=== PATIENT | female | born 1960 | race Caucasian/White ===

== ENCOUNTER → 2016-06-26 | Outpatient (REF) | payer BC ==
[~2016-06-26] MED LIST: ACET50TAOT PO; ADVI200C5 PO; ALEV220T26 PO; AMPI50CA PO; ATEN50TA2 PO; AUGM875T27 PO; CALC1TAB30 PO; CALC600T10 PO; CALC600T21 PO; CALC600T7 PO; CETI10TA PO; CIPR500T89 PO; CITA20TA4 PO; CLIN1CAP5 PO; COLA100C PO; DIFL150T PO; DIPH50CA PO; DIPH50TA4 PO; DOXY100C PO; DULC10SU2 PR; EFFE75CA75 PO; ESCI20TA PO; FAMO20TA PO; FLAG500T PO; HYDR-2808 PO; IBUP-1114 PO; IBUP800T23 PO; LETR2.5T PO; LEVA500T PO; LEVA750T PO; LEVO137T2 PO; Linezolid PO; METO25TAB PO; MILKSUS PO; NAPR250T2 PO; NAPR500T2 PO; NORC5TAB PO; SYNT88TA2 PO; TAMO20TA4 PO; TRIA1CR TOP; TYLENOL PO; VENL75TA2 PO; VICO5TAB16 PO; VICOTAB4 PO; VITA100066 PO; VITA200016 PO; VITA200038 PO; ZANT1TAB PO; ZYRT10CA PO; ZYVO100T PO; vicodin PO
== END ==
LOC: M LAB REF 16:56
PROVIDERS: ATTEND Internal Medicine Medical Oncology
DX: C50.919 Malignant neoplasm of unspecified site of unspecified female breast (principal)

== ENCOUNTER → 2016-06-29 | Outpatient (CLI) | payer BC ==
--- NOTE | 2016-06-29 14:24 | REP ---
WHOLE BODY BONE SCAN: Following the intravenous administration of 21.5 mCi of technetium 99m MDP, patient's whole body is imaged in the anterior and posterior projections. Additional oblique images of the thoracic and pelvic regions are performed as well as lateral views of the calvarium and knees. Comparison made with prior study of 02/20/2014. There is mild arthritic uptake at the right knee joint. There is no compelling scintigraphic evidence of osseous metastases. No focal abnormality is seen in the axial or appendicular skeleton. Renal and bladder activity are seen. IMPRESSION: No compelling scintigraphic evidence of osseous metastases. Signed by Agustin Soto MD 06/29/2016 04:44 P
== END ==
LOC: M RAD 10:07
PROVIDERS: ATTEND Nurse Practitioner Family
DX: C50.919 Malignant neoplasm of unspecified site of unspecified female breast (principal)

== ENCOUNTER → 2016-09-13 | Outpatient (REF) | payer BC ==
[~2016-09-13] MED LIST changes: -COLA100C PO; +COLA100C3 PO; +NORC1TAB4 PO; -NORC5TAB PO
== END ==
LOC: M LAB REF 12:42
PROVIDERS: ATTEND Family Medicine
DX: M25.561 Pain in right knee (principal); M17.9 Osteoarthritis of knee, unspecified

== ENCOUNTER → 2016-10-27 | Outpatient (REF) | payer BC ==
[~2016-10-27] MED LIST changes: +AMPI500C9 PO; -AMPI50CA PO; -AUGM875T27 PO; +AUGM875T28 PO; -CALC600T10 PO; -CALC600T21 PO; +CALC600T31 PO; +CALC600T60 PO; +CIPR-249 PO; -CIPR500T89 PO; +CLIN150C14 PO; -CLIN1CAP5 PO; -COLA100C3 PO; +COLA100C5 PO; +IBUP1TAB7 PO; -IBUP800T23 PO; -LETR2.5T PO; +LETR2.5T2 PO; +LEVA1TAB2 PO; -LEVA500T PO; -LEVA750T PO; +LEVA750T7 PO; +METO25TA4 PO; -NAPR250T2 PO; +NAPR250T4 PO; -NAPR500T2 PO; +NAPR500T3 PO
== END ==
LOC: M LAB REF 16:51
PROVIDERS: ATTEND Family Medicine
DX: D64.9 Anemia, unspecified (principal)

== ENCOUNTER → 2017-05-11 | Outpatient (REF) | payer BC ==
[2017-05-13 10:08] LABS: CA 27.29 15.8 U/mL (0.0-38.6)
== END ==
LOC: M LAB REF 13:47
DX: C50.919 Malignant neoplasm of unspecified site of unspecified female breast (principal)
CPT/HCPCS: 86300

== ENCOUNTER → 2017-05-15 | Outpatient (CLI) | payer BC, MEDICARE ==
[~2017-05-15] MED LIST changes: -ACET50TAOT PO; -ADVI200C5 PO; -ALEV220T26 PO; -AMPI500C9 PO; -ATEN50TA2 PO; -AUGM875T28 PO; -CALC1TAB30 PO; -CALC600T31 PO; -CALC600T60 PO; -CALC600T7 PO; -CETI10TA PO; -CIPR-249 PO; -CITA20TA4 PO; -CLIN150C14 PO; -COLA100C5 PO; -DIFL150T PO; -DIPH50CA PO; -DIPH50TA4 PO; -DOXY100C PO; -DULC10SU2 PR; -EFFE75CA75 PO; -ESCI20TA PO; -FAMO20TA PO; -FLAG500T PO; -HYDR-2808 PO; -IBUP-1114 PO; -IBUP1TAB7 PO; +ISOVUE-370 76% 100ML VIAL (Q9967) As Ordered; -LETR2.5T2 PO; -LEVA1TAB2 PO; -LEVA750T7 PO; -LEVO137T2 PO; -Linezolid PO; -METO25TA4 PO; -METO25TAB PO; -MILKSUS PO; -NAPR250T4 PO; -NAPR500T3 PO; -NORC1TAB4 PO; -SYNT88TA2 PO; -TAMO20TA4 PO; -TRIA1CR TOP; -TYLENOL PO; -VENL75TA2 PO; -VICO5TAB16 PO; -VICOTAB4 PO; -VITA100066 PO; -VITA200016 PO; -VITA200038 PO; -ZANT1TAB PO; -ZYRT10CA PO; -ZYVO100T PO; -vicodin PO
== END ==
LOC: M RAD 16:01
DX: C50.911 Malignant neoplasm of unspecified site of right female breast (principal)
CPT/HCPCS: Q9967

== ENCOUNTER → 2017-08-13 | Outpatient (REF) | payer BC, MEDICARE, OTHER ==
[2017-08-13 15:40] LABS: BASO # 0.1 10^3/uL (0.0-0.2); EOS # 0.3 10^3/uL (0.0-0.50); EOS % 4.9 % (0.0-3.0); HEMATOCRIT 40.3 % (36.0-47.0); HEMOGLOBIN 12.9 g/dl (12.0-15.5); IMMATURE GRANULOCYTE % 0.3 % (0-3.0); LYMPH # 1.6 10^3/uL (1.5-4.5); LYMPH % 25.6 % (24.0-44.0); MEAN CORPUSCULAR HEMOGLOBIN 26.5 pg (27.0-33.0); MEAN CORPUSCULAR VOLUME 82.8 fl (80.0-96.0); MONO # 0.5 10^3/uL (0.0-0.8); NEUTROPHILS # 3.8 10^3/uL (1.8-7.7); NEUTROPHILS % 60.2 % (36.0-66.0); PLATELET COUNT, AUTOMATED 296 10^3/uL (150-450); RED BLOOD COUNT 4.87 10^6/uL (4.00-5.40); WHITE BLOOD COUNT 6.3 10^3/uL (4.0-10.0)
[2017-08-13 16:08] LABS: RHEUMATOID FACTOR QUANT < 10.0 IU/ML (<15.0)
[2017-08-13 16:08] LABS: C REACTIVE PROTEIN QUANTITATIV 3.35 MG/DL (0.00-0.30)
[2017-08-13 16:34] LABS: ERYTHROCYTE SEDIMENTATION RATE 46 mm/hr (0-30)
== END ==
LOC: M LABDRAW1 14:23
DX: M65.331 Trigger finger, right middle finger (principal)
CPT/HCPCS: 86140

== ENCOUNTER 2017-10-19 08:46 | Day surgery (SDC) | payer BC, MEDICARE ==
[2017-10-19] MEDS: NS 1,000 ML IV (09:43)
[2017-10-19] MEDS ORDERED: PROPOFOL 200 MG/20 ML VIAL As Ordered ×2 (09:59)
[2017-10-19] MEDS ORDERED: LIDOCAINE 2% INJ 100 MG/5 ML SDV (FOR ANES.) As Ordered (09:59)
== END 2017-10-19 11:09 | disposition home or self-care (01) ==
LOC: M OPP 08:46
DX: Z12.11 Encounter for screening for malignant neoplasm of colon (principal); Z80.0 Family history of malignant neoplasm of digestive organs; Z15.09 Genetic susceptibility to other malignant neoplasm; Z84.81 Family history of carrier of genetic disease; D12.2 Benign neoplasm of ascending colon; D12.0 Benign neoplasm of cecum; D12.3 Benign neoplasm of transverse colon; D12.5 Benign neoplasm of sigmoid colon; R00.8 Other abnormalities of heart beat; Z85.3 Personal history of malignant neoplasm of breast; Z92.21 Personal history of antineoplastic chemotherapy; Z92.3 Personal history of irradiation; E03.9 Hypothyroidism, unspecified; J84.112 Idiopathic pulmonary fibrosis; R06.02 Shortness of breath; F41.9 Anxiety disorder, unspecified; F32.9 Major depressive disorder, single episode, unspecified; R06.83 Snoring; Z87.440 Personal history of urinary (tract) infections; Z90.13 Acquired absence of bilateral breasts and nipples; Z88.1 Allergy status to other antibiotic agents; Z88.2 Allergy status to sulfonamides; Z79.899 Other long term (current) drug therapy
CPT/HCPCS: 45385

== ENCOUNTER 2018-01-30 17:53 | Emergency (ER) | payer BC, MEDICARE ==
[2018-01-30] MEDS: ACETAMINOPHEN TAB 650MG DOSE (2X325MG) PO (20:07)
[2018-01-30] MEDS: traMADol 50 MG TAB PO (20:07)
== END 2018-01-30 20:15 | disposition home or self-care (01) ==
LOC: M ED 17:53
DX: S80.211A Abrasion, right knee, initial encounter (principal); S30.1XXA Contusion of abdominal wall, initial encounter; S83.421A Sprain of lateral collateral ligament of right knee, initial encounter; W22.8XXA Striking against or struck by other objects, initial encounter; Y92.018 Other place in single-family (private) house as the place of occurrence of the external cause; E03.9 Hypothyroidism, unspecified; E55.9 Vitamin D deficiency, unspecified; F41.9 Anxiety disorder, unspecified; F33.9 Major depressive disorder, recurrent, unspecified; Z79.899 Other long term (current) drug therapy; Z79.890 Hormone replacement therapy; Z88.1 Allergy status to other antibiotic agents; Z88.2 Allergy status to sulfonamides; Z88.8 Allergy status to other drugs, medicaments and biological substances
CPT/HCPCS: 73552

== ENCOUNTER → 2018-02-25 | Outpatient (CLI) | payer BC, MEDICARE | LOC: M WHC 09:22 | DX: Z51.81 Encounter for therapeutic drug level monitoring (principal); Z79.899 Other long term (current) drug therapy; Z78.0 Asymptomatic menopausal state; M85.851 Other specified disorders of bone density and structure, right thigh; M85.852 Other specified disorders of bone density and structure, left thigh; M85.88 Other specified disorders of bone density and structure, other site | CPT/HCPCS: 77080 ==

== ENCOUNTER 2018-12-25 13:34 | Emergency (ER) | payer BC, MEDICARE ==
[~2018-12-25] VITALS: Ht 167.6 cm; Wt 104.5 kg
[~2018-12-25 13:34] MED LIST changes: +ACET500T15 PO; +ADVI200C5 PO; +ALEV220T26 PO; +AMPI500C9 PO; +ATEN50TA2 PO; +AUGM875T28 PO; +BISO5TAB14 PO; +CALC1TAB30 PO; +CALC600T31 PO; +CALC600T60 PO; +CALC600T7 PO; +CETI10TA PO; +CIPR-249 PO; +CITA20TA6 PO; +CLIN150C14 PO; +COLA100C5 PO; +DIFL150T PO; +DIPH50CA PO; +DIPH50TA4 PO; +DOXY100C PO; +DULC10SU2 PR; +EFFE75CA2 PO; +ESCI20TA PO; +EXEM25TA PO; +FAMO20TA PO; +FLAG500T PO; +HYDR-2808 PO; +IBUP-1114 PO; +IBUP1TAB7 PO; -ISOVUE-370 76% 100ML VIAL (Q9967) As Ordered; +LETR2.5T2 PO; +LEVA1TAB2 PO; +LEVA750T7 PO; +LEVO137T2 PO; +Linezolid PO; +METO1TAB63 PO; +METO25TA4 PO; +MILK120011 PO; +NAPR-885 PO; +NAPR250T4 PO; +NORC1TAB7 PO; +RANI1TAB38 PO; +SYNT88TA2 PO; +TAMO20TA8 PO; +TRIA0.1C60 TOP; +TYLENOL PO; +ULTR50TA8 PO; +VENL75TA2 PO; +VICO5TAB17 PO; +VICOTAB4 PO; +VITA100066 PO; +VITA200016 PO; +VITA200038 PO; +ZANT150T15 PO; +ZYRT10CA PO; +ZYVO1TAB PO; +vicodin PO
--- NOTE | 2018-12-25 15:03 | REP ---
LEFT WRIST, FOUR VIEWS: Four views of the left wrist are performed. There is a slightly comminuted nondisplaced fracture of the distal end of the radius extending into the radiocarpal joint. There is no other evidence of acute fracture or dislocation. Electronically Signed by Agustin Soto MD 12/25/2018 03:37 P
--- NOTE | 2018-12-25 15:07 | REP ---
LEFT FOREARM, TWO VIEWS: Two views of the left forearm are performed. There is a nondisplaced comminuted intra-articular fracture of the distal radius. No other acute fracture or dislocation is seen. Electronically Signed by Agustin Soto MD 12/25/2018 03:37 P
[2018-12-25] MEDS ORDERED: ONDANSETRON 4 MG TAB (S0181) PO ONE (16:30)
[2018-12-25] MEDS ORDERED: ADACEL/BOOSTRIX VACCINE (DIPHTH/PERTUSS/ACELL/TETANUS)0.5ML SYR (90715) IM ONE (16:30)
[2018-12-25] MEDS ORDERED: PERCOCET 5MG/325MG TAB PO ONE (16:30)
--- NOTE | 2018-12-25 17:52 | REP ---
HISTORY: Pain after trauma. COMPARISON: None. There is mild asymmetric intradigital joint space narrowing. There is no prominent marginal osteophytosis. There are no marginal erosions. There is no acute fracture. Limited evaluation of the wrists show a hairline lucency in the distal radius. IMPRESSION: 1. No evidence of a hand fracture. Mild degenerative changes seen involving the hand as described above. 2. Suspect finding in the distal radius consistent with a distal radial fracture, a portion of which is impacted laterally with an additional hairline component more proximally. Wrist series recommended. Electronically Signed by Gregor Cabrales DO 12/25/2018 07:47 P
[2018-12-25] MEDS ORDERED: PERC5TAB12 PO (18:27)
[2018-12-25 18:29] VITALS: BP 144/76
[2018-12-27 12:15] LABS: HEPATITIS B SURFACE ANTIGEN NEGATIVE (NEGATIVE)
[2018-12-27 15:11] LABS: HEP C VIRUS AB INDEX SOURCE PT 0.1 INDEX (0.0-0.8)
== END 2018-12-25 18:38 | disposition home or self-care (01) ==
LOC: M ED 13:34
DX: S80.812A Abrasion, left lower leg, initial encounter (principal); S52.502A Unspecified fracture of the lower end of left radius, initial encounter for closed fracture; W18.39XA Other fall on same level, initial encounter; Y92.481 Parking lot as the place of occurrence of the external cause; Z79.899 Other long term (current) drug therapy; Z88.1 Allergy status to other antibiotic agents; Z88.2 Allergy status to sulfonamides; Z88.8 Allergy status to other drugs, medicaments and biological substances

== ENCOUNTER → 2019-05-30 | Outpatient (CLI) | payer BC, MEDICARE ==
[~2019-05-30] MED LIST changes: +FOLGTAB5 PO; +GASTROGRAFIN SOLUTION 30ML (Q9963) As Ordered ONE; +ISOVUE-370 76% 100ML VIAL (Q9967) As Ordered ONE; +PERC5TAB12 PO
--- NOTE | 2019-05-30 15:19 | REP ---
CT of the chest with IV contrast for restaging of breast carcinoma: Comparison is 05/15/2017. There is a linear fibrotic scar extending from the lateral margin of the right pectoralis muscle into the lateral right chest wall, unchanged in appearance from the prior study. There is no axillary mass or adenopathy on the right. There is no axillary mass or adenopathy on the left. There are bilateral mastectomies as previously. There are no lung nodules or masses. There are no infiltrates. There are no pleural effusions. There is curvilinear scarring anteriorly and posteriorly medially in the right upper lobe and in the right lower lobe and in the left lower lobe. The this is unchanged. There is no hilar, mediastinal or axillary adenopathy. The thoracic aorta is unremarkable. Cardiac size is normal. There is no pericardial effusion. There are no lytic, blastic or destructive skeletal changes. Impression: Stable soft tissue parenchymal scar at the lateral margin of the right pectoralis muscle extending into the lateral right chest wall, unchanged. Bilateral mastectomies, unchanged. There are no lung nodules or masses. There are no infiltrates or pleural effusions. There is no mediastinal, hilar or axillary adenopathy. There are no lytic, blastic or destructive skeletal changes. No significant change from the prior study. Electronically Signed by Agustin Martínez MD 05/30/2019 03:11 P
--- NOTE | 2019-05-30 15:26 | REP ---
CT of the abdomen and pelvis with IV and oral contrast for restaging of breast carcinoma. Comparison is 12/30/2015. The studies performed with dual phase imaging. The hepatic parenchyma is homogeneous on both phases. No hepatic metastases are identified. The gallbladder is surgically absent. The pancreas, spleen, adrenals and kidneys are unremarkable. The abdominal aorta is unremarkable. There is no periaortic adenopathy or mass. The bowel and mesentery are unremarkable. There is no ascites. Pelvis: The appendix is unremarkable. There is a hysterectomy. On the comparison study there was an abscess in the pouch of Tirso. This has resolved. The vaginal cuff and adnexa are unremarkable. The bladder is unremarkable. There are no lytic, blastic or destructive skeletal changes. Impression: There is no evidence of adenopathy or metastatic disease. The gallbladder is surgically absent. There is a hysterectomy. The previous abscess in the pouch of Tirso has resolved. Electronically Signed by Agustin Martínez MD 05/30/2019 03:18 P
== END ==
LOC: M RAD 12:01
PROVIDERS: ATTEND Internal Medicine Medical Oncology
DX: C50.911 Malignant neoplasm of unspecified site of right female breast (principal); Z90.49 Acquired absence of other specified parts of digestive tract
CPT/HCPCS: 71260; 74177; Q9963; Q9967

== ENCOUNTER → 2019-06-02 | Outpatient (REF) | payer BC, MEDICARE ==
[~2019-06-02] MED LIST changes: -GASTROGRAFIN SOLUTION 30ML (Q9963) As Ordered ONE; -ISOVUE-370 76% 100ML VIAL (Q9967) As Ordered ONE
[2019-06-02 13:32] LABS: ALBUMIN 3.4 GM/DL (3.2-5.2); BILIRUBIN,TOTAL 0.3 MG/DL (0.2-1.0); CALCIUM LEVEL 8.9 MG/DL (8.5-10.1); CHOLESTEROL RISK RATIO 4.947 (<5); CREATININE FOR GFR 1.03 MG/DL (0.55-1.30); GLOMERULAR FILTRATION RATE 58.6 (>51); POTASSIUM SERUM 3.9 MEQ/L (3.5-5.1); THYROID STIMULATING HORMONE 2.47 uIU/ML (0.358-3.740)
== END ==
LOC: M LABDRAWC 11:10
PROVIDERS: ATTEND Family Medicine
DX: E03.9 Hypothyroidism, unspecified (principal); R00.2 Palpitations; Z85.3 Personal history of malignant neoplasm of breast

== ENCOUNTER → 2019-06-06 | Outpatient (CLI) | payer BC, MEDICARE | LOC: M WHC 08:03 | PROVIDERS: ATTEND Internal Medicine Medical Oncology | DX: C50.911 Malignant neoplasm of unspecified site of right female breast (principal) ==

== ENCOUNTER → 2020-02-26 | Outpatient (CLI) | payer BC, MEDICARE ==
[~2020-02-26] MED LIST changes: +BENA25CA4 PO; +CALC-212 PO; -CALC600T7 PO; +DIAL800T PO; +FAMO40TA3 PO; -HYDR-2808 PO; +HYDR-4429 PO; +SYNT100T PO; +VENL100T PO
== END ==
LOC: M LABSMTC 11:51
PROVIDERS: ATTEND Anesthesiology
DX: Z01.812 Encounter for preprocedural laboratory examination (principal); Z20.828 Contact with and (suspected) exposure to other viral communicable diseases
CPT/HCPCS: C9803; U0003

== ENCOUNTER 2020-03-02 06:57 | Day surgery (SDC) | payer BC, MEDICARE ==
[~2020-03-02] VITALS: Ht 167.6 cm; Wt 107.0 kg
[~2020-03-02 06:57] MED LIST changes: +BACITRACIN PWD 50,000 UNITS VIAL As Ordered ONE; +BUPIVACAINE LIPOSOME/PF 1.3% 20ML VIAL (13.3MG/ML)(EXPAREL)(C9290 PER1MG) As Ordered ONE; +CLINDAMYCIN 600 MG in IV 1 EA IV ONE; +EPINEPHrine INJ 1 MG/ML 1ML AMP As Ordered ONE; +LIDOCAINE 1% MDV 20ML VIAL As Ordered ONE; +LR 1,000 ML IV ONE; -SYNT100T PO; -VENL100T PO
[2020-03-02] MEDS ORDERED: SYNT100T PO (07:10)
[2020-03-02] MEDS ORDERED: VENL100T PO (07:10)
[2020-03-02] MEDS: HEPARIN SOD (PORCINE) 5000UNITS/ML 1ML VIAL/SYRINGE SQ ONE ×2 (08:01→09:00)
[2020-03-02] MEDS ORDERED: propofoL 200 MG/20 ML VIAL As Ordered ONE (08:23)
[2020-03-02] MEDS ORDERED: dexameTHASONE 4 MG/ML 1ML VIAL (J1100 PER 1MG) As Ordered ONE (08:23)
[2020-03-02] MEDS ORDERED: LIDOCAINE 2% 100MG/5ML SDV (FOR ANES.) As Ordered ONE (08:23)
[2020-03-02] MEDS ORDERED: fentaNYL 250 MCG/5 ML INJECTION (J3010) As Ordered ONE (08:23)
[2020-03-02] MEDS ORDERED: ROCURONIUM BROMIDE 50 MG/5 ML VIAL As Ordered ONE ×3 (08:23→11:12)
[2020-03-02] MEDS ORDERED: MIDAZOLAM INJ 2MG/2ML VIAL (J2250 PER 1MG) As Ordered ONE (08:24)
[2020-03-02] MEDS ORDERED: LACRILUBE (AKWA TEARS) OPHTH OINT 3.5 GM As Ordered ONE (08:52)
[2020-03-02] MEDS ORDERED: ePHEDrine SULFATE 25 MG/5 ML(5MG/ML) SYRINGE As Ordered ONE (09:19)
[2020-03-02] MEDS ORDERED: PHENYLephrine HCL 500 MCG/5 ML (100MCG/ML) SYRINGE (J2370) As Ordered ONE (09:31)
[2020-03-02] MEDS ORDERED: SUGAMMADEX SODIUM 500 MG/5 ML VIAL (BRIDION) As Ordered ONE (09:47)
[2020-03-02] MEDS ORDERED: METOCLOPRAMIDE INJ 10MG/2ML VIAL (J2765 PER 1) As Ordered ONE (09:47)
[2020-03-02] MEDS ORDERED: ACETAMINOPHEN 1000MG 100ML IV BTL (OFIRMEV) (J0131 PER 10MG) As Ordered ONE ×2 (09:47→09:51)
[2020-03-02] MEDS ORDERED: HYDROmorphone HCL 2 MG/ML 1ML VIAL (J1170) As Ordered ONE (11:14)
--- NOTE | 2020-03-02 13:07 | POST-OPPD ---
Postoperative Procedure Note Date Of Procedure: Mar 02, 2020 PREOPERATIVE DIAGNOSIS: Symptomatic scar, tissue redundancy s/p failed bilateral breast reconstruction after mastectomies POSTOPERATIVE DIAGNOSIS: same FINDINGS: Contracted scar on the right and Left, Excess tissue right and left breast to lateral chest wall PROCEDURE: Revision bilateral breast reconstruction with local tissue rearrangement, chest wall contouring, mastectomy scars revision and left pectoralis muscle reattachment. SURGEON: Dr Adam ANESTHESIA: General SPECIMENS: Right and left breast tissue ESTIMATED BLOOD LOSS: 100 cc REPLACED: none DRAINS: 10 mm CHANO x 2 COMPLICATIONS: none POSTOPERATIVE CONDITION: stable [id number] DEYANIRA ADAM DO Mar 02, 2020 13:07
[2020-03-02] MEDS ORDERED: ONDANSETRON 4MG/2ML VIAL IV PRN ×2 (13:45→14:00)
[2020-03-02] MEDS ORDERED: LR 1,000 ML IV SCH (13:45)
[2020-03-02] MEDS ORDERED: METOCLOPRAMIDE INJ 10MG/2ML VIAL (J2765 PER 1) IV PRN (13:45)
[2020-03-02] MEDS ORDERED: fentaNYL 100 MCG/2 ML INJECTION (J3010) IV PRN (13:45)
[2020-03-02] MEDS ORDERED: PERCOCET 5MG/325MG TAB PO PRN (13:45)
[2020-03-02] MEDS: LR 1,000 ML IV SCH (13:54)
[2020-03-02] MEDS ORDERED: ACETAMINOPHEN TAB 650MG DOSE (2X325MG) PO PRN (14:00)
[2020-03-02] MEDS ORDERED: KETOROLAC TROMETHAMINE 10 MG TAB PO PRN (14:00)
[2020-03-02 15:30] VITALS: BP 149/92
[2020-03-02] MEDS: PERCOCET 5MG/325MG TAB PO PRN (18:22)
[2020-03-02] MEDS ORDERED: bisoproloL fumarate 5 MG TAB PO SCH (21:00)
[2020-03-02] MEDS ORDERED: CETIRIZINE (ZyrTEC) 10 MG TAB PO SCH (21:00)
[2020-03-02] MEDS ORDERED: FAMOTIDINE 20 MG TAB PO SCH (21:00)
[2020-03-02 21:24] VITALS: BP 150/91
[2020-03-02] MEDS: OMEPRAZOLE 20 MG CAP PO SCH (21:24)
[2020-03-02] MEDS: VENLAFAXINE 25 MG TAB PO SCH (21:24)
[2020-03-02 21:38] VITALS: BP 151/90
[2020-03-02] MEDS ORDERED: diphenhydrAMINE 50MG CAP PO SCH ×2 (22:00)
[2020-03-03] MEDS: LR 1,000 ML IV SCH (03:14)
[2020-03-03] MEDS ORDERED: LEVOTHYROXINE 100MCG TABLET (0.1MG) PO SCH (06:00)
[2020-03-03 06:31] VITALS: BP 137/86
--- NOTE | 2020-03-03 07:09 | RO ---
DATE OF OPERATION: 03/02/2020 PREOPERATIVE DIAGNOSIS: Symptomatic scar, tissue redundancy status post failed breast reconstruction bilaterally after mastectomies. POSTOPERATIVE DIAGNOSIS: Symptomatic scar, tissue redundancy status post failed breast reconstruction bilaterally after mastectomies. PROCEDURES: Revision, bilateral breast reconstruction with local tissue rearrangement, chest wall contouring, mastectomy scar revision, and left pectoralis muscle reattachment. ATTENDING SURGEON: Dr. Banks ANESTHESIA: General. SPECIMEN SENT: Right and left breast tissue. BLOOD LOSS: 100 mL. REPLACEMENT: None. DRAINS: Two 10 mm Leo-Arciniega drains used. COMPLICATIONS: None. PROCEDURE DESCRIPTION: This is a 59-year-old female who has a history of right breast cancer. She had right modified radical mastectomy and left mastectomy for symmetry. Patient had also chemotherapy and radiation. Radiation was on the right side. She had complicated course with her outbound sales consultant placement; therefore, both of them had to be removed. She developed painful contraction on the right side status post radiation and a previous implant being there. Also she has significant redundancy on her lateral chest wall, more on the left than on the right. Patient would like to have some symmetry and reduce her redundant tissue as well as release her scar contracture, which is causing significant discomfort on the right side. Risks, benefits, and alternatives were discussed with the patient in detail, and she is ready to proceed. The day of surgery she was marked in the up right position. She was brought into the operating room and placed in supine position. Preoperative antibiotics were given. Sequential stockings placed on the lower calves. General anesthesia was induced. Heparin was given, 5000 units subcutaneous. We started our procedure on the right side, which was more affected side, site of the radiation. The incision was carried out through the old resultant scar, and then under direct vision with the lighted retractor, we elevated the flap superiorly to the subclavicular area, releasing the contracture. Pectoralis muscle on the right was intact and in a good position, so the adhesions were released using electrocautery and PEAK cautery inferiorly and superiorly. We created a new pocket. There was a significant amount of fatty tissue that was present. We created the subcuticular flap that would be reshaping our pectoralis. Also additional dissection was done laterally. The with elevated lateral publications distribution clerk flap from the lateral chest, which was de-epithelialized and then turned medially, covering the inferior portion of the breast. It was reattached to the superior portion of the fat flap that was created from the previous scar, so it was completely released and restructured. The tissues were rearranged. The lateral chest was closed with interrupted 0 Vicryl sutures, and then we conformed our padding in the breast mount reconstructed part with 0 Vicryl sutures, and the skin was closed with interrupted 3-0 Monocryl in a running 3-0 V-lock suture. Then tumescent solution was infiltrated in the lateral chest wall, and laser liposuction was done on the lateral chest wall for the improvement of the contour as well as regular liposuction of about 100 mL was evacuated just to smooth out the lateral chest contour. Also, Exparel was infiltrated into the pectoralis muscle, totally 6 mL, and the medial portion of the scar was given Exparel as well. Lidocaine area of the tumescent and the Exparel were not mixed at any time. We turned our attention to the left side, which had less damage to the surrounding tissue, since it was not radiated. The incision was carried out through the old mastectomy incision, and then the flaps were raised inferiorly and superiorly. Pectoralis muscle on this side was completed from inferior boarder. Area was identified, and repaired using interrupted 0 Vicryl sutures. Pectoralis muscle was reattached to costal fascia. Then we reassessed. This breast has a lot more fatty tissue padding and is smoother, so the flap was realigned, and then we also raised the lateral chest wall flap, which was de- epithelialized, and then turned anteriorly to cover the inferior portion of the breast and given good padding. The excess tissue was tailored, de- epithelialized, and used as an inferior sling so it was symmetrical to the right side. The incision was lowered to inframammary fold (IMF), so both incisions now along the IMF. We started closing with interrupted 3-0 Monocryl sutures, and excess tissue was measured, de-epithelialized, and used as a new padding for creating the breast mound. The lateral chest wall was then infiltrated with tumescent solution, and for excess tissue we used laser liposuction and regular liposuction to contour the lateral chest, totalling 200 mL of fat was removed. Then 10 mm Leo-Arciniega drain was placed at the lateral portion of the horizontal incision. We continued our closure with 3-0 Monocryl and a 3-0 V-Loc suture. Good symmetry was achieved. Compressive dressing with foam was placed on both axilla, Prineo dressing on the inferior incision, and bulky dressing and a surgical bra. Patient was extubated in the operating room without any difficulty and was transferred to the recovery room in stable condition. ÁNGEL
[2020-03-03] MEDS: OMEPRAZOLE 20 MG CAP PO SCH (09:00)
[2020-03-03] MEDS: PERCOCET 5MG/325MG TAB PO PRN (09:05)
[2020-03-03] MEDS: VENLAFAXINE 25 MG TAB PO SCH (09:05)
--- NOTE | 2020-03-03 09:49 | IPNPDOC ---
Subjective General Date Seen: Mar 03, 2020 Subject Chief Complaint/History The patient is a 59-year-old female admitted with a reason for visit of Failed Bilateral Reconstruction,Scar Contracture... Patient s/p bilateral mastectomy scar revisions POD 1. Doing well. Pain controlled, tolerating diet. Current Medications Current Medications Current Medications Medications (Trade) Dose Ordered Sig/Maryana Route PRN Reason Start Time Stop Time Status Last Admin Dose Admin Acetaminophen (Tylenol Tab) 650 mg Q6H PRN PO MILD PAIN (PS 1-4) 03/02/20 14:00 Bisoprolol Fumarate (Zebeta) 5 mg QHS PO 03/02/20 21:00 03/02/20 21:24 Cetirizine HCl (ZyrTEC) 10 mg QHS PO 03/02/20 21:00 03/02/20 21:24 Diphenhydramine HCl (Benadryl) 50 mg QHS PO 03/02/20 22:00 03/02/20 22:54 Diphenhydramine HCl (Benadryl) 50 mg QHSP PO 03/02/20 22:00 03/02/20 21:58 DC Famotidine (Pepcid) 40 mg DAILY@2100 PO 03/02/20 21:00 03/02/20 22:54 Fentanyl Citrate (Sublimaze) 25 mcg Q5MP PRN IV PAIN LEVEL 5-10 03/02/20 13:45 03/02/20 14:45 DC Ketorolac Tromethamine (ToRADol) 10 mg Q6HP PRN PO MODERATE PAIN (PS 5-7) 03/02/20 14:00 03/07/20 13:59 03/02/20 21:35 Lactated Ringer's 1,000 ml @ 75 mls/hr [id number] IV 03/02/20 13:54 Lactated Ringer's 1,000 ml @ 100 mls/hr Q10H IV 03/02/20 13:45 03/02/20 14:45 DC Levothyroxine Sodium (Synthroid) 100 mcg DAILY@06 PO 03/03/20 06:00 03/03/20 06:31 Metoclopramide HCl (REGLAN INJection) 10 mg Q6HP PRN IV NAUSEA OR VOMITING 03/02/20 13:45 03/02/20 14:45 DC Miscellaneous (Unresolved Patient Own Med Order) SEE LABEL COMMENTS DAILY XX 03/02/20 09:00 03/03/20 04:07 DC Omeprazole (PriLOSEC) 20 mg BID PO 03/02/20 21:00 03/02/20 21:24 Ondansetron HCl (ZOFRAN INJection) 4 mg Q4H PRN IV NAUSEA OR VOMITING 03/02/20 14:00 Ondansetron HCl (ZOFRAN INJection) 4 mg Q4HP PRN IV NAUSEA OR VOMITING 03/02/20 13:45 03/02/20 14:45 DC Oxycodone/ Acetaminophen (Percocet 5mg/ 325mg Tablet) 1 tab ASDIRECTED PRN PO PAIN LEVEL 1-4 03/02/20 13:45 03/02/20 14:45 DC Oxycodone/ Acetaminophen (Percocet 5mg/ 325mg Tablet) 1 tab Q4HP PRN PO MODERATE PAIN (PS 5-7) 03/02/20 14:00 03/03/20 09:05 Patient Own Medication (Patient'S Own Med) Exemestane 25 mg TAB... DAILY PO 03/02/20 09:00 03/03/20 09:06 Venlafaxine HCl (Effexor) 100 mg BID PO 03/02/20 21:00 03/03/20 09:05 Allergies Coded Allergies: nitrofurantoin (Verified Allergy, Intermediate, hives, 02/24/20) sulfamethoxazole (Verified Allergy, Intermediate, hives and itching, 02/24/20) trimethoprim (Verified Allergy, Intermediate, hives and itching, 02/24/20) TAPE (Verified Allergy, Mild, RASH IF LEFT ON FOR TOO LONG ON TORSO, 02/24/20) Sulfa (Sulfonamide Antibiotics) (Verified Allergy, Unknown, 02/24/20) cephalexin (Verified Allergy, Unknown, 02/24/20) Objective Physical Examination Examination GENERAL APPEARANCE:Patient seen, laying in bed, awake, alert, and oriented. Comfortable, in no acute distress. SKIN: Warm and moist. BREAST: Right and left soft, non-tender incisions intact. CHANO drains: 50/80cc/24 hr. NAC: Viable, warm, symmetrical, mild post-op ecchymosis, no expanding hematoma. HEENT: Normocephalic, atraumatic. Richards palpebral conjunctiva, anicteric scle meng. Lips and mucosa appear moist. NECK: Supple, no thyromegaly. No obvious jugular venous distention. LUNGS: Clear to auscultation bilaterally. No wheezing appreciated. HEART: No chest wall abnormalities. Regular rate and rhythm with no murmurs appreciated. ABDOMEN: Abdomen is soft, non-tender, non-distended. EXTREMITIES: No edema identified. No calf tenderness. Vital Signs Vital Signs Date Time Temp Pulse Resp B/P (MAP) Pulse Ox O2 Delivery O2 Flow Rate FiO2 03/03/20 09:05 18 03/03/20 06:31 97.6 88 137/86 (103) 91 Room Air 03/02/20 15:04 3 I&Os I&O- Last 24 Hours up to 6 AM 03/03/20 06:00 Intake Total 2305 ml Output Total 980 ml Balance 1325 ml Impression S/p bilateral mastectomy scar revision, breast reconstruction revision. Doing well. Stable for discharge D/c home. F/u plastic surgery. Plan / VTE VTE Prophylaxis Ordered?: Yes DEYANIRA ADAM DO Mar 03, 2020 09:49
[2020-03-03] MEDS ORDERED: PERCOCET PO (09:56)
[2020-03-15] MEDS ORDERED: OXYC1TAB23 (14:45)
== END 2020-03-03 10:45 | disposition home or self-care (01) ==
LOC: M SDC 06:57 → M MS5PR 15:15 → M SDC 03-03 10:45
PROVIDERS: ATTEND Plastic Surgery Surgery of the Hand
DX: L90.5 Scar conditions and fibrosis of skin (principal); Z90.13 Acquired absence of bilateral breasts and nipples; Z85.3 Personal history of malignant neoplasm of breast; I35.1 Nonrheumatic aortic (valve) insufficiency; K21.9 Gastro-esophageal reflux disease without esophagitis; F34.1 Dysthymic disorder; G47.00 Insomnia, unspecified; R94.31 Abnormal electrocardiogram [ECG] [EKG]; E03.9 Hypothyroidism, unspecified; L50.1 Idiopathic urticaria; R32 Unspecified urinary incontinence; Z88.2 Allergy status to sulfonamides; Z88.1 Allergy status to other antibiotic agents; Z88.8 Allergy status to other drugs, medicaments and biological substances; Z79.811 Long term (current) use of aromatase inhibitors
CPT/HCPCS: 19380; 88300; 88302; C9290; J0131; J0171; J1100; J1170; J1644; J2250; J2370; J2765; J3010

== ENCOUNTER 2020-03-12 15:22 | Emergency (ER) | payer BC, MEDICARE ==
[~2020-03-12] VITALS: Ht 167.6 cm; Wt 108.3 kg
[~2020-03-12 15:22] MED LIST changes: -BACITRACIN PWD 50,000 UNITS VIAL As Ordered ONE; -BUPIVACAINE LIPOSOME/PF 1.3% 20ML VIAL (13.3MG/ML)(EXPAREL)(C9290 PER1MG) As Ordered ONE; -CLINDAMYCIN 600 MG in IV 1 EA IV ONE; -EPINEPHrine INJ 1 MG/ML 1ML AMP As Ordered ONE; -LIDOCAINE 1% MDV 20ML VIAL As Ordered ONE; -LR 1,000 ML IV ONE; +PERCOCET PO; +SYNT100T PO; +VENL100T PO
[2020-03-12] MEDS ORDERED: EUTH100T PO (15:56)
[2020-03-12] MEDS ORDERED: FAMO1TAB25 PO (15:56)
[2020-03-12] MEDS ORDERED: NAPR250T4 PO (16:05)
[2020-03-12 17:54] LABS: BASO # 0.1 10^3/uL (0.0-0.2); BASO % 0.6 % (0.0-1.0); EOS # 0.6 10^3/uL (0.0-0.5); EOS % 5.9 % (0.0-3.0); HEMATOCRIT 37.1 % (36.0-47.0); HEMOGLOBIN 11.8 g/dl (12.0-15.5); LYMPH # 2.1 10^3/uL (1.5-5.0); LYMPH % 21.6 % (24.0-44.0); MEAN CORPUSCULAR HEMOGLOBIN 28.2 pg (27.0-33.0); MEAN CORPUSCULAR HGB CONC 31.8 g/dl (32.0-36.5); MEAN CORPUSCULAR VOLUME 88.5 fl (80.0-96.0); MONO # 1.1 10^3/uL (0.0-0.8); MONO % 10.6 % (0.0-5.0); NEUTROPHILS % 60.8 % (36.0-66.0); PLATELET COUNT, AUTOMATED 381 10^3/uL (150-450); RED BLOOD COUNT 4.19 10^6/uL (4.00-5.40); WHITE BLOOD COUNT 9.9 10^3/uL (4.0-10.0)
[2020-03-12 18:12] LABS: ERYTHROCYTE SEDIMENTATION RATE 117 mm/hr (0-30)
[2020-03-12 18:17] LABS: ALBUMIN 3.2 GM/DL (3.2-5.2); BILIRUBIN,DIRECT 0.1 MG/DL (0.0-0.2); BILIRUBIN,TOTAL 0.4 MG/DL (0.2-1.0); C REACTIVE PROTEIN QUANTITATIV 16.4 MG/DL (0.00-0.30); TOTAL PROTEIN 7.3 GM/DL (6.4-8.2)
[2020-03-12] MEDS ORDERED: CIPR-249 PO (18:28)
--- NOTE | 2020-03-12 18:43 | CR.PDOC ---
Plastic Surgery Consultation Date of Consultation 03/12/20 History and Physical CONSULT REPORT FOR: Emergency room REASON FOR CONSULTATION: Right breast redness HISTORY OF PRESENT ILLNESS: 59 year old female s/p bilateral breasts deformity s/p bilateral mastectomy and failed uniform room attendant reconstruction in 2013. Original diagnosis Right breast cancer, Left prophylactic. Patient underwent chemotherapy (port on the left, removed), and radiation. Post radiation skin changes Right side. Patient underwent bilateral oncoplastic reconstruction on 03/02/20. Had uneventful recovery course. Today c/o increased redness and pain right breast. No drainage, fever, odor. PAST MEDICAL HISTORY: 1. Right breast CA. PAST SURGICAL HISTORY: INCLUDES: 1. Bilateral mastectomy. Bilateral implant reconstruction, removal of implants. PREVIOUS ANESTHESIA REACTIONS: denies ALLERGIES: Please see below. FAMILY HISTORY: non contributory. HOME MEDICATIONS: Please see below. REVIEW OF SYSTEMS: GENERAL: Denies chills, reports weight gain,. HEENT: Denies blurred vision and double vision. Denies ear symptoms. Denies hoarseness. NECK: Denies any neck pain]. CARDIOVASCULAR: Denies chest pain and palpitations. MUSCULOSKELETAL: Denies arthralgias, back pain and thrombophlebitis. SKIN: Right breast redness NEUROLOGIC: Denies headache, stroke and transient ischemic attack. PSYCHIATRIC: Denies anxiety and depression. ENDOCRINE: Denies thyroid disease. HEMATOLOGY/ONCOLOGY: Denies bleeding or clotting disorder. HEART: Denies any chest pains, palpitations, paroxysmal dyspnea, orthopnea. PULMONARY: Denies chronic cough, dyspnea and wheezing. GASTROINTESTINAL: Denies rectal bleeding, family history of colon cancer, constipation, diarrhea, dysphagia, heartburn and jaundice. GENITOURINARY: Denies dysuria, frequency, hematuria and nocturia. ENDOCRINE: Denies polydipsia, polyphagia, polyuria, heat or cold intolerance. INFECTIOUS: Denies any recent upper respiratory tract infection, UTI, need for use of antibiotics. NUTRITION: Reports good appetite. PHYSICAL EXAMINATION: VITALS SIGNS: Please see below. GENERAL APPEARANCE:Patient seen, laying in bed, awake, alert, and oriented. Comfortable, in no acute distress. SKIN: Warm and moist. BREAST: Right breast with redness mid breast. Incision intact, no drainage. Left breast soft, incision intact, no tenderness. LUNGS: Clear to auscultation bilaterally. No wheezing appreciated. HEART: No chest wall abnormalities. Regular rate and rhythm with no murmurs appreciated. LABORATORY DATA: Please see below. IMAGING STUDIES: Right breast US: loculated collection. IMPRESSION: Right breast with collection. Normal WBC Plan for IR drainage of collection. Cipro Rx Minimize upper extremity motion, no heavy lifting F/up with plastic surgery sunday. Finding and plan discussed with patient, she agrees. PLANS: . Vital Signs Vital Signs Date Time Temp Pulse Resp B/P (MAP) Pulse Ox O2 Delivery O2 Flow Rate FiO2 03/12/20 16:01 Automatic Cuff (NIBP) Left Arm 03/12/20 15:22 98.4 105 16 97 Room Air Laboratory Data Labs 24H Laboratory Tests 2 03/12/20 17:38: Immature Granulocyte % (Auto) 0.5, Neutrophils (%) (Auto) 60.8, Lymphocytes (%) (Auto) 21.6L, Monocytes (%) (Auto) 10.6H, Eosinophils (%) (Auto) 5.9H, Basophils (%) (Auto) 0.6, Neutrophils # (Auto) 6.0, Lymphocytes # (Auto) 2.1, Monocytes # (Auto) 1.1H, Eosinophils # (Auto) 0.6H, Basophils # (Auto) 0.1, Nucleated Red Blood Cells % (auto) 0.0, Erythrocyte Sedimentation Rate 117H, Lactic Acid Level 0.9, Total Bilirubin 0.4, Direct Bilirubin 0.1, Aspartate Amino Transf (AST/SGOT) 38H, Alanine Aminotransferase (ALT/SGPT) 65, Alkaline Phosphatase 144H, C-Reactive Protein, Quantitative 16.40H, Total Protein 7.3, Albumin 3.2, Albumin/Globulin Ratio 0.8L 03/12/20 17:44: POC Glucose (Misc Panel) 109H, POC Sodium (Misc Panel) 137, POC Potassium (Misc Panel) 3.5, POC Chloride (Misc Panel) 99, POC Total CO2 (Misc Panel) 30.0H, POC Blood Urea Nitrogen (Misc Panel 13, POC Ionized Calcium (Misc Panel) 4.6, POC Creatinine (Misc Panel) 1.0, POC Hematocrit (Misc Panel) 35.0L CBC/BMP Laboratory Tests 03/12/20 17:38 Microbiology Microbiology 03/12/20 Blood Culture, Received Pending 03/12/20 Blood Culture, Received Pending Home Medications Scheduled Bisoprolol Fumarate (Bisoprolol Fumarate) 5 Mg Tab, 5 MG PO DAILY, (Reported) Calcium Carbonate/Vitamin D3 (Calcium 500-Vit D3 200 Caplet) 1 Tab Tab, 1 TAB PO BID, (Reported) Cetirizine HCl (Cetirizine HCl) 10 Mg Tab, 10 MG PO QHS, (Reported) Ciprofloxacin HCl (Cipro) 500 Mg Tablet, 500 MG PO BID Diphenhydramine HCl (Benadryl) 25 Mg Capsule, 50 MG PO QPM, (Reported) Exemestane (Exemestane) 25 Mg Tab, 25 MG PO DAILY Famotidine (Famotidine) 10 Mg Tablet, 1 TAB PO BID, (Reported) Levothyroxine Sodium (Euthyrox) 100 Mcg Tablet, 1 TAB PO DAILY, (Reported) Venlafaxine HCl (Venlafaxine HCl) 100 Mg Tablet, 100 MG PO BID, (Reported) Scheduled PRN Naproxen (Naproxen) 250 Mg Tablet, 250 MG PO for PAIN, (Reported) Oxycodone/Acetaminophen (Oxycodone-Acetaminophen 5-325) 1 Each Tablet, 1 TAB PO Q6HP PRN for MODERATE PAIN (PS 5-7) Allergies Coded Allergies: nitrofurantoin (Verified Allergy, Intermediate, hives, 02/24/20) sulfamethoxazole (Verified Allergy, Intermediate, hives and itching, 02/24/20) trimethoprim (Verified Allergy, Intermediate, hives and itching, 02/24/20) TAPE (Verified Allergy, Mild, RASH IF LEFT ON FOR TOO LONG ON TORSO, 02/24/20) Sulfa (Sulfonamide Antibiotics) (Verified Allergy, Unknown, 02/24/20) cephalexin (Verified Allergy, Unknown, 02/24/20) DEYANIRA ADAM DO Mar 12, 2020 18:43
[2020-03-12] MEDS ORDERED: CIPROFLOXACIN 500MG TABLET PO ONE (19:00)
[2020-03-12 19:06] VITALS: BP 144/67
--- NOTE | 2020-03-12 19:31 | REPVR ---
PROCEDURE INFORMATION: Exam: US Right Breast Limited Exam date and time: 03/12/2020 6:08 PM Age: 59 years old Clinical indication: Breast pain; Right; Prior surgery; Surgery date: <1 month; Surgery type: RT breast reconstruction; Additional info: Post operative-indurated/painful ? infection TECHNIQUE: Imaging protocol: Limited ultrasound of Right breast with image documentation, including axilla when performed. Exam focused on the search and evaluation for mass. COMPARISON: US BREAST U/S UNILATERAL LIMITED RIGHT 02/07/2016 1:31 PM FINDINGS: Breast: According to history the patient has had a previous right mastectomy 2013. Patient had surgical breast reconstruction surgery 03/02/2020. Deep to the area of scar right breast is a 5.1 cm x 3 cm x 9.3 cm complex fluid collection. There is no evidence of internal vascular flow. The area of fluid collection has numerous septations and surrounding edema. The skin in the region of the scar demonstrates a red appearance. This may represent a complex infected fluid collection/abscess. This could also represent a complex serous collection of fluid. IMPRESSION: 1. 5.1 cm x 3 cm x 9.3 cm complex fluid collection deep to the scar and area erythema. This could represent a serous fluid collection or an infected fluid collection. There are numerous septations and this is multiloculated. 2. The study is performed as a postoperative study of the chest wall for reconstruction surgery. Electronically signed by: bOi Florian On 03/12/2020 19:31:41 PM
[2020-03-15] MEDS ORDERED: OXYC1TAB23 (14:45)
== END 2020-03-12 19:07 | disposition home or self-care (01) ==
LOC: M ED 15:22
DX: T81.40XA Infection following a procedure, unspecified, initial encounter (principal); C50.911 Malignant neoplasm of unspecified site of right female breast; Z90.13 Acquired absence of bilateral breasts and nipples; Z92.21 Personal history of antineoplastic chemotherapy; Z92.3 Personal history of irradiation; E03.9 Hypothyroidism, unspecified; F33.9 Major depressive disorder, recurrent, unspecified; F41.9 Anxiety disorder, unspecified; Z88.1 Allergy status to other antibiotic agents; Z88.2 Allergy status to sulfonamides; Z88.8 Allergy status to other drugs, medicaments and biological substances; Z79.899 Other long term (current) drug therapy

== ENCOUNTER → 2020-03-15 | Outpatient (CLI) | payer BC, MEDICARE ==
[~2020-03-15] MED LIST changes: +EUTH100T PO; +FAMO1TAB25 PO; +OXYC1TAB23
== END ==
LOC: M LABSMTC 13:27
PROVIDERS: ATTEND Anesthesiology
DX: Z01.812 Encounter for preprocedural laboratory examination (principal); Z20.828 Contact with and (suspected) exposure to other viral communicable diseases

== ENCOUNTER 2020-03-16 12:42 | Day surgery (SDC) | payer BC, MEDICARE ==
[~2020-03-16] VITALS: Ht 167.6 cm; Wt 108.0 kg
[~2020-03-16 12:42] MED LIST changes: +HEPARIN SOD (PORCINE) 5000UNITS/ML 1ML VIAL/SYRINGE SQ ONE; +LR 1,000 ML IV ONE
[2020-03-16] MEDS ORDERED: CIPROFLOXACIN 400 MG in IV 1 EA IV ONE (14:00)
[2020-03-16] MEDS ORDERED: ONDANSETRON 4MG/2ML VIAL As Ordered ONE (15:26)
[2020-03-16] MEDS ORDERED: MIDAZOLAM INJ 2MG/2ML VIAL (J2250 PER 1MG) As Ordered ONE (15:26)
[2020-03-16] MEDS ORDERED: propofoL 200 MG/20 ML VIAL As Ordered ONE (15:26)
[2020-03-16] MEDS ORDERED: fentaNYL 100 MCG/2 ML INJECTION (J3010) As Ordered ONE ×2 (15:26→17:59)
[2020-03-16] MEDS ORDERED: dexameTHASONE 4 MG/ML 1ML VIAL (J1100 PER 1MG) As Ordered ONE (15:26)
[2020-03-16] MEDS ORDERED: LIDOCAINE 2% 100MG/5ML SDV (FOR ANES.) As Ordered ONE (15:26)
[2020-03-16] MEDS ORDERED: BACITRACIN PWD 50,000 UNITS VIAL As Ordered ONE (16:01)
[2020-03-16] MEDS ORDERED: SCOPOLAMINE 1MG TRANSDERMAL PATCH TOP ONE (16:15)
[2020-03-16] MEDS ORDERED: ACETAMINOPHEN 1000MG 100ML IV BTL (OFIRMEV) (J0131 PER 10MG) As Ordered ONE (17:03)
--- NOTE | 2020-03-16 17:53 | POST-OPPD ---
Postoperative Procedure Note Date Of Procedure: Mar 16, 2020 PREOPERATIVE DIAGNOSIS: Right breast collection POSTOPERATIVE DIAGNOSIS: same FINDINGS: seroma right breast PROCEDURE: Drainage of Right breast collection. SURGEON: Dr Adam CERTIFIED CODING SPECIALIST: Dr Ashraf ANESTHESIA: General SPECIMENS: Seroma culture ESTIMATED BLOOD LOSS: 10 cc REPLACED: none DRAINS: 15 Fr Round drain COMPLICATIONS: none POSTOPERATIVE CONDITION: stable [id number] DEYANIRA ADAM DO Mar 16, 2020 17:53
[2020-03-16] MEDS ORDERED: CIPR-249 PO (17:56)
[2020-03-16] MEDS ORDERED: ONDANSETRON 4MG/2ML VIAL IV PRN (18:30)
[2020-03-16] MEDS ORDERED: fentaNYL 100 MCG/2 ML INJECTION (J3010) IV PRN (18:30)
[2020-03-16 19:10] VITALS: BP 125/74
--- NOTE | 2020-03-17 12:18 | RO ---
DATE OF OPERATION: 03/16/2020 PREOPERATIVE DIAGNOSIS: Right breast collection. POSTOPERATIVE DIAGNOSIS: Right breast collection. FINDINGS: Seroma right breast. PROCEDURE: Drainage of right breast collection. ATTENDING SURGEON: Lacey Banks DO, FACOS DIRECTOR RIVER RESTORATION: Dr. Ashraf ANESTHESIA: General. SPECIMENS: Seroma, culture sent. BLOOD LOSS: 10 mL, no replacement. DRAINS: 15-Palauan round drain. COMPLICATIONS: None. INDICATIONS: This is a 59-year-old female who was operated upon on the 02 of March who had oncoplastic reconstruction bilateral breasts. The patient developed swelling and increased tenderness on the right breast. She was seen in the emergency room over the weekend with increased collection of fluid which was confirmed by ultrasound. The patient is scheduled today for drainage. Risks, benefits and alternatives discussed with the patient in detail and she is ready to proceed. DESCRIPTION OF PROCEDURE: Dr. Ashraf did an ultrasound preoperatively and confirmed the collection and the area where we would be entering the breast tissue. Patient was prepped and draped in usual sterile fashion. Sequentials were placed on lower calves and incision was carried out along the old incision, this was opened. The cavity was entered under direct vision and seroma was found with dark but clear fluid, no odor and no turbulence although fluid was taken for cultures, it was evacuated. The cavity was irrigated with 1 liter of Bacitracin irrigation solution. Drain was placed through separate stab incision, 15-Palauan round. The wound was closed in layers with #0 Vicryl sutures and 3-0 Monocryl sutures subcu and also vertical mattress sutures to the skin. Xeroform and bulky dressing were applied. The patient was extubated in the operating room without any difficulties and transferred to the recovery room in stable condition. Amount of seroma evacuated 100 mL. MTDD
== END 2020-03-16 19:10 | disposition home or self-care (01) ==
LOC: M SDC 12:42
PROVIDERS: ATTEND Plastic Surgery Surgery of the Hand
DX: L76.34 Postprocedural seroma of skin and subcutaneous tissue following other procedure (principal); I47.1 Supraventricular tachycardia; E03.9 Hypothyroidism, unspecified; F34.1 Dysthymic disorder; L50.1 Idiopathic urticaria; D64.9 Anemia, unspecified; G47.00 Insomnia, unspecified; K21.9 Gastro-esophageal reflux disease without esophagitis; M17.11 Unilateral primary osteoarthritis, right knee; N95.1 Menopausal and female climacteric states; F41.9 Anxiety disorder, unspecified; R06.83 Snoring; R32 Unspecified urinary incontinence; F32.9 Major depressive disorder, single episode, unspecified; Z79.899 Other long term (current) drug therapy; Z86.010 Personal history of colon polyps; Z88.1 Allergy status to other antibiotic agents; Z88.2 Allergy status to sulfonamides; Z88.8 Allergy status to other drugs, medicaments and biological substances; Z91.048 Other nonmedicinal substance allergy status; Z92.21 Personal history of antineoplastic chemotherapy; Z92.3 Personal history of irradiation; Z85.3 Personal history of malignant neoplasm of breast; Z90.710 Acquired absence of both cervix and uterus
CPT/HCPCS: 10140; 87070; 87075; 87077; 87186; 87205; J0131; J0744; J1100; J1644; J2250; J2405; J3010

== ENCOUNTER 2020-03-30 11:02 | Day surgery (SDC) | payer BC, MEDICARE ==
[~2020-03-30] VITALS: Ht 167.6 cm; Wt 105.4 kg
[~2020-03-30 11:02] MED LIST changes: -HEPARIN SOD (PORCINE) 5000UNITS/ML 1ML VIAL/SYRINGE SQ ONE; -LR 1,000 ML IV ONE
[2020-03-30] MEDS ORDERED: EUTH112T PO (11:26)
[2020-03-30] MEDS ORDERED: VITMTA PO (11:26)
[2020-03-30] MEDS ORDERED: CIPR500T3 PO (11:26)
[2020-03-30] MEDS ORDERED: MIDAZOLAM INJ 2MG/2ML VIAL (J2250 PER 1MG) As Ordered ONE (13:24)
[2020-03-30] MEDS ORDERED: dexameTHASONE 4 MG/ML 1ML VIAL (J1100 PER 1MG) As Ordered ONE (13:24)
[2020-03-30] MEDS ORDERED: fentaNYL 100 MCG/2 ML INJECTION (J3010) As Ordered ONE ×2 (13:24→16:06)
[2020-03-30] MEDS ORDERED: LIDOCAINE 2% 100MG/5ML SDV (FOR ANES.) As Ordered ONE (13:24)
[2020-03-30] MEDS ORDERED: ONDANSETRON 4MG/2ML VIAL As Ordered ONE (13:24)
[2020-03-30] MEDS ORDERED: propofoL 200 MG/20 ML VIAL As Ordered ONE (13:24)
[2020-03-30 14:11] LABS: BASO # 0.1 10^3/uL (0.0-0.2); BASO % 0.6 % (0.0-1.0); EOS # 0.5 10^3/uL (0.0-0.5); EOS % 6.1 % (0.0-3.0); HEMATOCRIT 36.5 % (36.0-47.0); HEMOGLOBIN 11.4 g/dl (12.0-15.5); LYMPH # 2.3 10^3/uL (1.5-5.0); LYMPH % 27.2 % (24.0-44.0); MEAN CORPUSCULAR HEMOGLOBIN 27.4 pg (27.0-33.0); MEAN CORPUSCULAR HGB CONC 31.2 g/dl (32.0-36.5); MEAN CORPUSCULAR VOLUME 87.7 fl (80.0-96.0); MONO # 0.9 10^3/uL (0.0-0.8); MONO % 10.6 % (0.0-5.0); NEUTROPHILS # 4.7 10^3/uL (1.5-8.5); NEUTROPHILS % 54.9 % (36.0-66.0); PLATELET COUNT, AUTOMATED 365 10^3/uL (150-450); RED BLOOD COUNT 4.16 10^6/uL (4.00-5.40); WHITE BLOOD COUNT 8.6 10^3/uL (4.0-10.0)
[2020-03-30] MEDS ORDERED: BUPIVACAINE LIPOSOME/PF 1.3% 20ML VIAL (13.3MG/ML)(EXPAREL)(C9290 PER1MG) As Ordered ONE (14:17)
[2020-03-30] MEDS ORDERED: BACITRACIN PWD 50,000 UNITS VIAL As Ordered ONE (14:18)
--- NOTE | 2020-03-30 14:27 | CR.PDOC ---
Plastic Surgery Consultation Date of Consultation 03/30/20 History and Physical CONSULT REPORT FOR: emergency room REASON FOR CONSULTATION: left breast seroma HISTORY OF PRESENT ILLNESS: 59 y/o female s/p bilateral revision breast reconstruction on 03/02/20. Patient developed seroma on the right breast which was drained on 03/15/20. Yesterday patient was seen in my office c/o increased fullness of the left breast. She was scheduled to have seroma drainage for 03/31/20. This morning she woke up with significant leakage from the left breast serosanguinous drainage. She was instructed to go to ER for further evaluation. PAST MEDICAL HISTORY: 1. right breast cancer. PAST SURGICAL HISTORY: INCLUDES: 1. bilateral mastectomies Bilateral breast reconstruction with subsequent implant removal Bilateral breast soft tissue reconstruction, chest wall conturing. PREVIOUS ANESTHESIA REACTIONS: none ALLERGIES: Please see below. FAMILY HISTORY: non contributory. HOME MEDICATIONS: Please see below. REVIEW OF SYSTEMS: GENERAL: Denies chills, reports weight gain,. HEENT: Denies blurred vision and double vision. Denies ear symptoms. Denies hoarseness. NECK: Denies any neck pain]. CARDIOVASCULAR: Denies chest pain and palpitations. MUSCULOSKELETAL: Denies arthralgias, back pain and thrombophlebitis. SKIN: Denies rash. NEUROLOGIC: Denies headache, stroke and transient ischemic attack. PSYCHIATRIC: Denies anxiety and depression. ENDOCRINE: Denies thyroid disease. HEMATOLOGY/ONCOLOGY: Denies bleeding or clotting disorder. HEART: Denies any chest pains, palpitations, paroxysmal dyspnea, orthopnea. PULMONARY: Denies chronic cough, dyspnea and wheezing. GASTROINTESTINAL: Denies rectal bleeding, family history of colon cancer, c onstipation, diarrhea, dysphagia, heartburn and jaundice. GENITOURINARY: Denies dysuria, frequency, hematuria and nocturia. ENDOCRINE: Denies polydipsia, polyphagia, polyuria, heat or cold intolerance. INFECTIOUS: Denies any recent upper respiratory tract infection, UTI, need for use of antibiotics. NUTRITION: Reports good appetite. PHYSICAL EXAMINATION: VITALS SIGNS: Please see below. GENERAL APPEARANCE:Patient seen, laying in bed, awake, alert, and oriented. Comfortable, in no acute distress. SKIN: Warm and moist. BREAST: Right and left soft, non-tender incisions intact. CHANO drains: Right 20 cc/24 hr. Left breast incision intact. serosanguinous drainage seeping thru. No redness. LUNGS: Clear to auscultation bilaterally. No wheezing appreciated. HEART: No chest wall abnormalities. Regular rate and rhythm with no murmurs appreciated. LABORATORY DATA: Please see below. IMPRESSION: Left breast seroma. PLANS: WBC 8.6 Plan for OR today for drainage of seroma, wash out left breast. Risks, benefits and alternatives discussed with patient in details. She is ready to proceed. Vital Signs Vital Signs Date Time Temp Pulse Resp B/P (MAP) Pulse Ox O2 Delivery O2 Flow Rate FiO2 03/30/20 13:29 97.9 91 16 126/64 (84) 96 Room Air Laboratory Data Labs 24H Laboratory Tests 2 03/30/20 11:50: Coronavirus (COVID-19)(PCR) NEGATIVE, Influenza Type A (RT-PCR) NEGATIVE, Influenza Type B (RT-PCR) NEGATIVE, Respiratory Syncytial Virus (PCR) NEGATIVE 03/30/20 13:54: Immature Granulocyte % (Auto) 0.6, Neutrophils (%) (Auto) 54.9, Lymphocytes (%) (Auto) 27.2, Monocytes (%) (Auto) 10.6H, Eosinophils (%) (Auto) 6.1H, Basophils (%) (Auto) 0.6, Neutrophils # (Auto) 4.7, Lymphocytes # (Auto) 2.3, Monocytes # (Auto) 0.9H, Eosinophils # (Auto) 0.5, Basophils # (Auto) 0.1, Nucleated Red Blood Cells % (auto) 0.0 CBC/BMP Laboratory Tests 03/30/20 13:54 Home Medications Scheduled Bisoprolol Fumarate (Bisoprolol Fumarate) 5 Mg Tab, 5 MG PO DAILY, (Reported) Calcium Carbonate/Vitamin D3 (Calcium 500-Vit D3 200 Caplet) 1 Tab Tab, 1 TAB PO BID, (Reported) Cetirizine HCl (Cetirizine HCl) 10 Mg Tab, 10 MG PO QHS, (Reported) Ciprofloxacin HCl (Ciprofloxacin HCl) 500 Mg Tablet, 1 TAB PO BID, (Reported) Diphenhydramine HCl (Benadryl) 25 Mg Capsule, 50 MG PO QPM, (Reported) Exemestane (Exemestane) 25 Mg Tab, 25 MG PO DAILY Famotidine (Famotidine) 10 Mg Tablet, 1 TAB PO BID, (Reported) Levothyroxine Sodium (Euthyrox) 112 Mcg Tablet, 1 TAB PO DAILY, (Reported) Multivitamins (Thera M Plus Tablet) 1 Each Tablet, 1 TAB PO QAM, (Reported) Venlafaxine HCl (Venlafaxine HCl) 100 Mg Tablet, 100 MG PO BID, (Reported) Miscellaneous Medications Oxycodone HCl/Acetaminophen (Oxycodone-Acetaminophen 5-325) 1 Each Tablet, (Reported) Allergies Coded Allergies: nitrofurantoin (Verified Allergy, Intermediate, hives, 03/15/20) sulfamethoxazole (Verified Allergy, Intermediate, hives and itching, 03/15/20) trimethoprim (Verified Allergy, Intermediate, hives and itching, 03/15/20) TAPE (Verified Allergy, Mild, RASH IF LEFT ON FOR TOO LONG ON TORSO, 03/15/20) Sulfa (Sulfonamide Antibiotics) (Verified Allergy, Unknown, 03/15/20) cephalexin (Verified Allergy, Unknown, 03/15/20) DEYANIRA ADAM DO Mar 30, 2020 14:27
[2020-03-30] MEDS ORDERED: CIPROFLOXACIN/D5W 400 MG/200 ML BAG (J0744) As Ordered ONE (14:38)
[2020-03-30] MEDS ORDERED: DESFLURANE 240 ML INHALANT As Ordered ONE (14:44)
[2020-03-30 14:45] LABS: ALBUMIN 2.6 GM/DL (3.2-5.2); ALT/SGPT 55 U/L (12-78); BILIRUBIN,TOTAL 0.4 MG/DL (0.2-1.0); BLOOD UREA NITROGEN 12 MG/DL (7-18); CALCIUM LEVEL 8.9 MG/DL (8.5-10.1); CARBON DIOXIDE LEVEL 30 MEQ/L (21-32); CHLORIDE LEVEL 103 MEQ/L (98-107); GLOMERULAR FILTRATION RATE > 60.0 (>51); GLUCOSE, FASTING 106 MG/DL (70-100); POTASSIUM SERUM 5.2 MEQ/L (3.5-5.1); SODIUM LEVEL 138 MEQ/L (136-145); TOTAL PROTEIN 6.7 GM/DL (6.4-8.2)
[2020-03-30] MEDS ORDERED: ACETAMINOPHEN 1000MG 100ML IV BTL (OFIRMEV) (J0131 PER 10MG) As Ordered ONE (15:24)
--- NOTE | 2020-03-30 16:06 | POST-OPPD ---
Postoperative Procedure Note Date Of Procedure: Mar 30, 2020 PREOPERATIVE DIAGNOSIS: Left breast collection POSTOPERATIVE DIAGNOSIS: same FINDINGS: left breast seroma PROCEDURE: Evacuation collection and wash out left breast SURGEON: Dr Adam ANESTHESIA: General SPECIMENS: Left breast fluid culture ESTIMATED BLOOD LOSS: 20cc REPLACED: none DRAINS: 15Fr Round COMPLICATIONS: none POSTOPERATIVE CONDITION: stable Dict: [id number] DEYANIRA ADAM DO Mar 30, 2020 16:06
[2020-03-30] MEDS: fentaNYL 100 MCG/2 ML INJECTION (J3010) IV PRN ×2 (16:10→16:16)
[2020-03-30] MEDS ORDERED: METOCLOPRAMIDE INJ 10MG/2ML VIAL (J2765 PER 1) IV PRN (16:30)
[2020-03-30] MEDS ORDERED: LR 1,000 ML IV SCH (16:30)
[2020-03-30] MEDS ORDERED: oxyCODONE 5MG TAB PO PRN (16:30)
[2020-03-30] MEDS ORDERED: ONDANSETRON 4MG/2ML VIAL IV PRN (16:30)
[2020-03-30 17:05] VITALS: BP 111/62
--- NOTE | 2020-03-31 08:50 | RO ---
OPERATIVE NOTE DATE OF OPERATION: 03/30/2020 PREOPERATIVE DIAGNOSIS: Left breast collection. POSTOPERATIVE DIAGNOSIS: Left breast collection. FINDINGS: Left breast seroma. PROCEDURE: Evacuation collection and washout left breast. ATTENDING SURGEON: Dr. Banks. ANESTHESIA: General. SPECIMEN: Left breast fluid culture. BLOOD LOSS: 20 mL. No replacement. DRAINS: 15-Burundian round drain. COMPLICATIONS: No complications. DESCRIPTION OF PROCEDURE: This is a 59-year-old female who had bilateral postmastectomy chest recontouring and a breast reconstruction revision on March 03, 2020. Patient had seroma drained on the right side on the 15 of March, and now she developed a new collection on the left side. White count is normal. Seroma had started to drain spontaneously this morning so patient came to the emergency room, and we have her scheduled to have completion of the drainage collection and washout today. Risks, benefits, and alternatives discussed with the patient, and she is ready to proceed. She was brought into the operating room and placed in the supine position. Preoperative antibiotics were given. Sequentials placed on the lower calf. General anesthesia was induced. She was prepped and draped in the usual sterile fashion. We opened about 6 cm of the incision through the area where she started draining. Remnants of the serosanguineous collection were identified. There were a small amount of clots, fresh, from hematoma identified which was very minor. We irrigated with 3 liters of normal saline. The muscle layer was completely intact and viable. The flap was viable and healing well. No active bleeding identified. The remnants of the little hematoma were washed out, and a 15-Burundian round drain was introduced into the cavity through separate stab incision and sutured in place. Then we closed the incision with layers with 2-0 Vicryl and 3-0 Monocryl sutures. Prineo dressing was applied. Skin was in good condition, well perfusion. No signs of any infection. Cultures were taken, aerobic and anaerobic, of the fluid. Patient had a bulky dressing placed and extubated in the operating room without any difficulties. Transferred to the recovery room in stable condition. [facility] CENTERNettie
== END 2020-03-30 17:25 | disposition home or self-care (01) ==
LOC: M ED 11:02 → M SDC 11:03
PROVIDERS: ATTEND Plastic Surgery Surgery of the Hand
DX: N64.89 Other specified disorders of breast (principal); L76.82 Other postprocedural complications of skin and subcutaneous tissue; E03.9 Hypothyroidism, unspecified; Z79.899 Other long term (current) drug therapy; Z88.2 Allergy status to sulfonamides; Z88.1 Allergy status to other antibiotic agents; Z85.3 Personal history of malignant neoplasm of breast; D64.9 Anemia, unspecified
CPT/HCPCS: 10140; 80053; 85025; 87070; 87075; 87076; 87631; 99284; J0131; J0744; J1100; J2250; J2405; J3010

== ENCOUNTER → 2020-04-07 | Outpatient (REF) | payer BC, MEDICARE ==
[~2020-04-07] MED LIST changes: +CIPR500T3 PO; +CLIN300C6; +EUTH112T PO; +TRAM50TA2 PO; +VITMTA PO
== END ==
LOC: M LAB REF 16:36
PROVIDERS: ATTEND Plastic Surgery Surgery of the Hand
DX: L76.34 Postprocedural seroma of skin and subcutaneous tissue following other procedure (principal)

== ENCOUNTER 2020-04-10 12:12 | Emergency (ER) | payer BC, MEDICARE ==
[~2020-04-10] VITALS: Ht 167.6 cm; Wt 105.6 kg
[~2020-04-10 12:12] MED LIST changes: -CLIN300C6; -TRAM50TA2 PO
[2020-04-10] MEDS ORDERED: CLIN300C6 (12:27)
[2020-04-10] MEDS ORDERED: MORPHINE 4 MG/ML 1ML VIAL/SYRINGE (J2270) IV ONE (13:00)
[2020-04-10 13:36] LABS: BASO % 0.4 % (0.0-1.0); EOS # 0.1 10^3/uL (0.0-0.5); EOS % 1.8 % (0.0-3.0); HEMATOCRIT 34.7 % (36.0-47.0); HEMOGLOBIN 10.8 g/dl (12.0-15.5); LYMPH % 39.1 % (24.0-44.0); MEAN CORPUSCULAR HEMOGLOBIN 26.9 pg (27.0-33.0); MEAN CORPUSCULAR HGB CONC 31.1 g/dl (32.0-36.5); MEAN CORPUSCULAR VOLUME 86.5 fl (80.0-96.0); MONO # 0.5 10^3/uL (0.0-0.8); NEUTROPHILS # 2.5 10^3/uL (1.5-8.5); NEUTROPHILS % 49.5 % (36.0-66.0); PLATELET COUNT, AUTOMATED 255 10^3/uL (150-450); RED BLOOD COUNT 4.01 10^6/uL (4.00-5.40); WHITE BLOOD COUNT 5.1 10^3/uL (4.0-10.0)
[2020-04-10 14:05] LABS: ERYTHROCYTE SEDIMENTATION RATE 64 mm/hr (0-30)
[2020-04-10 14:10] LABS: BLOOD UREA NITROGEN 9 MG/DL (7-18); CARBON DIOXIDE LEVEL 29 MEQ/L (21-32); CHLORIDE LEVEL 103 MEQ/L (98-107); CREATININE FOR GFR 0.94 MG/DL (0.55-1.30); GLOMERULAR FILTRATION RATE > 60.0 (>51); GLUCOSE, FASTING 121 MG/DL (70-100); POTASSIUM SERUM 3.8 MEQ/L (3.5-5.1); SODIUM LEVEL 139 MEQ/L (136-145)
[2020-04-10 14:11] LABS: ALBUMIN 2.7 GM/DL (3.2-5.2); ALT/SGPT 43 U/L (12-78); BILIRUBIN,DIRECT 0.2 MG/DL (0.0-0.2); BILIRUBIN,TOTAL 0.2 MG/DL (0.2-1.0); CALCIUM LEVEL 8.5 MG/DL (8.5-10.1); FREE T4 1.08 NG/DL (0.76-1.46); TOTAL PROTEIN 6.4 GM/DL (6.4-8.2)
--- NOTE | 2020-04-10 15:05 | REP ---
INDICATION: right post mastectomy; swelling/warmth; r/o abscess/seroma COMPARISON: 03/12/2020 TECHNIQUE: Real time gutiérrez scale and color evaluation using high-frequency transducer. FINDINGS: There is a complex multi-septated subcutaneous avascular collection underlying the area of erythema which measures 5.2 x 2.2 x 1.2 cm and may represent seroma/abscess. Findings appear decreased in size as compared with 03/12/2020 and correlation is recommended. IMPRESSION: Complex septated fluid collection which appears decreased in size when compared to prior examination. Differential diagnosis includes postoperative seroma and abscess. <Electronically signed by Jamie Armenta > 04/10/20 [id number]
[2020-04-10] MEDS ORDERED: TRAM50TA2 PO (15:54)
[2020-04-10] MEDS ORDERED: traMADol 50 MG TAB PO ONE (16:00)
[2020-04-10 16:40] VITALS: BP 140/81
--- NOTE | 2020-04-13 17:48 | ED PDOC ---
Post-Departure Follow-Up dr barrow and dr stratton faxed formal report chest echo for fu Daisy Vilchis MD Apr 13, 2020 17:48
== END 2020-04-10 16:41 | disposition home or self-care (01) ==
LOC: M ED 12:12
DX: N64.89 Other specified disorders of breast (principal); Z85.3 Personal history of malignant neoplasm of breast; Z92.21 Personal history of antineoplastic chemotherapy; F33.9 Major depressive disorder, recurrent, unspecified; F41.9 Anxiety disorder, unspecified; Z79.899 Other long term (current) drug therapy; Z88.1 Allergy status to other antibiotic agents; Z88.2 Allergy status to sulfonamides; Z88.8 Allergy status to other drugs, medicaments and biological substances; Z91.048 Other nonmedicinal substance allergy status
CPT/HCPCS: 76604; 80048; 80076; 83605; 84439; 84443; 85025; 85652; 96374; 99283; J2270

== ENCOUNTER → 2021-03-07 | Outpatient (CLI) | payer BC, MEDICARE ==
[~2021-03-07] MED LIST changes: +CLIN-250; -CLIN150C14 PO; +CLIN150C17 PO; +D31000TA2 PO; -DOXY100C PO; +DOXY100C3 PO; -ESCI20TA PO; +ESCI20TA16 PO; +FAMO10TA50 PO; -FAMO1TAB25 PO; +NAPR-849 PO; -NAPR250T4 PO; +OYST500T8 PO; +TRAM50TA2 PO; +ZINC1TAB2 PO
--- NOTE | 2021-03-07 13:51 | REP ---
INDICATION: BREAST CA W/ RT HIP PAIN W/ LBP ? METS. COMPARISON: 06/29/2016 TECHNIQUE/RADIOTRACER AND DOSE: After the intravenous administration of 21.9 mCi of technetium 99 M MDP total body bone scan was obtained. FINDINGS: There is mild patchy activity seen in the shoulders, knees right greater than left, ankles, and feet in a fashion stable from the prior exam. IMPRESSION: Mild degenerative type uptake patterns as described above. No significant change from the prior exam. No compelling evidence for metastatic disease. <Electronically signed by Gregor Cabrales > 03/07/21 [id number]
== END ==
LOC: M RAD 09:51
PROVIDERS: ATTEND Internal Medicine Medical Oncology
DX: C50.919 Malignant neoplasm of unspecified site of unspecified female breast (principal)
CPT/HCPCS: 78306; A9503

== ENCOUNTER → 2021-04-25 | Outpatient (CLI) | payer BC, MEDICARE | LOC: M LABSMTC 12:16 | PROVIDERS: ATTEND Anesthesiology | DX: Z20.828 Contact with and (suspected) exposure to other viral communicable diseases (principal); Z11.52 Encounter for screening for COVID-19 ==

== ENCOUNTER 2021-08-08 17:52 | Emergency (ER) | payer MEDICARE ==
[~2021-08-08] VITALS: Ht 167.6 cm; Wt 104.3 kg
[2021-08-08 17:52] VITALS: BP 130/84
[~2021-08-08 17:52] MED LIST changes: -D31000TA2 PO; +VITA100093 PO
== END 2021-08-08 18:44 | disposition left against medical advice (07) ==
LOC: M ED 17:52
DX: Z53.21 Procedure and treatment not carried out due to patient leaving prior to being seen by health care provider (principal)

== ENCOUNTER → 2021-08-18 | Outpatient (CLI) | payer MEDICARE ==
[~2021-08-18] MED LIST changes: +ISOVUE-300 61% 50ML VIAL As Ordered ONE; +LIDOCAINE 1% MDV 20ML VIAL As Ordered ONE; +methylPREDNISolone SUSP 40MG/ML 1ML VIAL (DEPO MEDROL) As Ordered ONE
== END ==
LOC: M RADPRO 13:53
PROVIDERS: ATTEND Physician Assistant
DX: M16.11 Unilateral primary osteoarthritis, right hip (principal)
CPT/HCPCS: 20610; 77002; J1030; Q9967

== ENCOUNTER → 2021-09-14 | Outpatient (CLI) | payer MEDICARE ==
[~2021-09-14] MED LIST changes: +GABA-1171 PO; -ISOVUE-300 61% 50ML VIAL As Ordered ONE; -LIDOCAINE 1% MDV 20ML VIAL As Ordered ONE; -methylPREDNISolone SUSP 40MG/ML 1ML VIAL (DEPO MEDROL) As Ordered ONE
== END ==
LOC: M WHC 11:00
PROVIDERS: ATTEND Internal Medicine Medical Oncology
DX: M85.852 Other specified disorders of bone density and structure, left thigh (principal); C50.411 Malignant neoplasm of upper-outer quadrant of right female breast

== ENCOUNTER → 2023-01-10 | Outpatient (CLI) | payer BC, MEDICARE ==
[~2023-01-10] MED LIST changes: +ATOR1TAB19 PO; +JANU25TA PO
== END ==
LOC: M RAD 08:18
PROVIDERS: ATTEND Internal Medicine Medical Oncology
DX: R94.5 Abnormal results of liver function studies (principal); Z85.3 Personal history of malignant neoplasm of breast; Z90.49 Acquired absence of other specified parts of digestive tract

== ENCOUNTER → 2023-02-06 | Outpatient (CLI) | payer MEDICARE | LOC: M PLAIMG 09:22 | PROVIDERS: ATTEND Internal Medicine Medical Oncology | DX: R94.5 Abnormal results of liver function studies (principal); K76.0 Fatty (change of) liver, not elsewhere classified; Z85.3 Personal history of malignant neoplasm of breast ==

== ENCOUNTER → 2023-02-27 | Outpatient (CLI) | payer MEDICARE ==
[~2023-02-27] MED LIST changes: +ZYRTTAB8 PO
== END ==
LOC: M RAD 10:08
PROVIDERS: ATTEND Internal Medicine Medical Oncology
DX: C50.911 Malignant neoplasm of unspecified site of right female breast (principal)
CPT/HCPCS: 78306; A9503

== ENCOUNTER → 2023-03-29 | Outpatient (REF) | payer MEDICARE ==
[2023-03-29 14:00] LABS: ALBUMIN 3.5 G/DL (3.2-5.2); ALKALINE PHOSPHATASE 143 U/L (46-116); ALT/SGPT 78 U/L (7.0-40); AST/SGOT 66 U/L (<34); BILIRUBIN,DIRECT 0.2 MG/DL (<0.4); BILIRUBIN,TOTAL 0.4 MG/DL (0.3-1.2); IRON (FE) 67 UG/DL (50-170); PERCENT SATURATION 22.9 % (13.2-45.0); TOTAL IRON BINDING CAPACITY 293 UG/DL (250-425); TOTAL PROTEIN 6.9 G/DL (5.7-8.2)
[2023-03-29 14:05] LABS: IMMUNOGLOBULIN A 285.1 MG/DL (40-350); INR 1.04; PROTHROMBIN TIME 13.3 SECONDS (12.5-14.5)
[2023-03-29 14:35] LABS: HEPATITIS B CORE ANTIBODY IGM NEGATIVE (NEGATIVE); HEPATITIS C VIRUS ABY INDEX 0.09 INDEX (<0.8)
[2023-04-03 03:07] LABS: ANCA-ATYPICAL <1:20 titer (Neg:<1:20); ANTI-MITOCHONDRIAL ANTIBODY <20.0 Units (0.0-20.0); ANTINUCLEAR ANTIBODIES DIRECT Negative (Negative); CYTOPLASMIC NEUTROP AB ANCA-C <1:20 titer (Neg:<1:20); LIVER-KIDNEY MICROSOMAL ABY <20.1 Units (0.0-20.0); PERINUCLEAR AB ANCA-P <1:20 titer (Neg:<1:20); TISSUE TRANSGLUTAMINASE IgA <2 U/mL (0-3)
== END ==
LOC: M LABDRAWC 11:43
PROVIDERS: ATTEND Internal Medicine Gastroenterology
DX: R74.01 Elevation of levels of liver transaminase levels (principal); R93.3 Abnormal findings on diagnostic imaging of other parts of digestive tract; Z86.39 Personal history of other endocrine, nutritional and metabolic disease

== ENCOUNTER → 2023-05-25 | Outpatient (REF) | payer MEDICARE ==
[2023-05-25 12:09] LABS: HEMOGLOBIN A1c 7.3 % (4.0-6.0)
[2023-05-25 12:10] LABS: CREATININE, URINE 106.6 MG/DL; MAU/CREAT RATIO 4.6 MCG/MG (0.0-30.0)
[2023-05-25 12:12] LABS: ALBUMIN 3.3 G/DL (3.2-5.2); ALKALINE PHOSPHATASE 142 U/L (46-116); ALT/SGPT 63 U/L (7.0-40); AST/SGOT 50 U/L (<34); BILIRUBIN,TOTAL 0.4 MG/DL (0.3-1.2); BLOOD UREA NITROGEN 12 MG/DL (9-23); CALCIUM LEVEL 9.1 MG/DL (8.3-10.6); CARBON DIOXIDE LEVEL 33 MMOL/L (20-31); CHLORIDE LEVEL 104 MMOL/L (98-107); CHOLESTEROL LEVEL 164 MG/DL (<200); CHOLESTEROL RISK RATIO 3.07 (<5); GLOMERULAR FILTRATION RATE > 60.0 (>45); GLUCOSE, FASTING 129 MG/DL (74-106); HDL CHOLESTEROL 53.4 MG/DL (>40); LDL CHOLESTEROL 83.4 MG/DL (<100); NON-HDL-C 110.6 MG/DL; POTASSIUM SERUM 4.5 MMOL/L (3.5-5.1); SODIUM LEVEL 142 MMOL/L (136-145); TOTAL PROTEIN 6.8 G/DL (5.7-8.2); TRIGLYCERIDES LEVEL 136 MG/DL (<150)
[2023-05-25 12:13] LABS: FREE T4 0.95 NG/DL (0.89-1.76); THYROID STIMULATING HORMONE 4.279 uIU/ML (0.55-4.78)
== END ==
LOC: M LABDRAWC 11:08
PROVIDERS: ATTEND Family Medicine
DX: Z79.84 Long term (current) use of oral hypoglycemic drugs (principal); E11.65 Type 2 diabetes mellitus with hyperglycemia; E78.5 Hyperlipidemia, unspecified; E03.9 Hypothyroidism, unspecified

== ENCOUNTER → 2023-05-28 | Outpatient (CLI) | payer MEDICARE | LOC: M PLAIMG 14:55 | PROVIDERS: ATTEND Physician Assistant | DX: I35.1 Nonrheumatic aortic (valve) insufficiency (principal) ==

== ENCOUNTER → 2023-09-20 | Outpatient (CLI) | payer MEDICARE ==
[~2023-09-20] MED LIST changes: +SEMA0.257 SQ; +THERTAB52 PO
== END ==
LOC: M WHC 10:46
PROVIDERS: ATTEND Internal Medicine Medical Oncology
DX: M85.80 Other specified disorders of bone density and structure, unspecified site (principal); Z80.3 Family history of malignant neoplasm of breast; Z79.818 Long term (current) use of other agents affecting estrogen receptors and estrogen levels

== ENCOUNTER → 2023-10-12 | Outpatient (REF) | payer MEDICARE ==
[2023-10-12 13:27] LABS: ALBUMIN 3.3 G/DL (3.2-5.2); ALKALINE PHOSPHATASE 132 U/L (46-116); ALT/SGPT 53 U/L (7.0-40); AST/SGOT 55 U/L (<34); BILIRUBIN,TOTAL 0.6 MG/DL (0.3-1.2); BLOOD UREA NITROGEN 10 MG/DL (9-23); CALCIUM LEVEL 9.8 MG/DL (8.3-10.6); CARBON DIOXIDE LEVEL 33 MMOL/L (20-31); CHLORIDE LEVEL 101 MMOL/L (98-107); CREATININE FOR GFR 0.84 MG/DL (0.55-1.30); GLOMERULAR FILTRATION RATE > 60.0 (>45); GLUCOSE, FASTING 121 MG/DL (74-106); POTASSIUM SERUM 3.9 MMOL/L (3.5-5.1); SODIUM LEVEL 139 MMOL/L (136-145); TOTAL PROTEIN 6.8 G/DL (5.7-8.2)
== END ==
LOC: M LABDRAWC 12:27
PROVIDERS: ATTEND Family Medicine
DX: E78.5 Hyperlipidemia, unspecified (principal); K21.9 Gastro-esophageal reflux disease without esophagitis; E03.9 Hypothyroidism, unspecified; E66.01 Morbid (severe) obesity due to excess calories; E11.65 Type 2 diabetes mellitus with hyperglycemia; R74.8 Abnormal levels of other serum enzymes

== ENCOUNTER → 2024-11-21 | Outpatient (CLI) | payer MEDICARE ==
[~2024-11-21] MED LIST changes: +IBUP200C89 PO; +ISOVUE-370 76% 100 ML VIAL ONE
== END ==
LOC: M PLAIMG 13:08
PROVIDERS: ATTEND Internal Medicine Medical Oncology
DX: J98.11 Atelectasis (principal); J47.9 Bronchiectasis, uncomplicated
CPT/HCPCS: 71260; Q9967

== ENCOUNTER → 2024-11-28 | Outpatient (CLI) | payer MEDICARE ==
[~2024-11-28] MED LIST changes: +GADOXETATE DISODIUM 2.5 MMOL/10 ML VIAL As Ordered ONE; -ISOVUE-370 76% 100 ML VIAL ONE
== END ==
LOC: M RAD 15:25
PROVIDERS: ATTEND Internal Medicine Medical Oncology
DX: R79.89 Other specified abnormal findings of blood chemistry (principal); C50.919 Malignant neoplasm of unspecified site of unspecified female breast; K76.0 Fatty (change of) liver, not elsewhere classified
CPT/HCPCS: 74183; A9581

== ENCOUNTER → 2025-04-01 | Outpatient (REF) | payer MEDICARE ==
[~2025-04-01] MED LIST changes: -DIPH50CA PO; +DIPH50CA31 PO; -GADOXETATE DISODIUM 2.5 MMOL/10 ML VIAL As Ordered ONE
== END ==
LOC: M LAB REF 12:11
PROVIDERS: ATTEND Physician Assistant Medical
DX: K75.81 Nonalcoholic steatohepatitis (NASH) (principal)